=== PATIENT | male | born 1960 | race Caucasian/White ===

== ENCOUNTER 2020-01-01 08:32 | Outpatient (CLI) | payer OTHER, SELFPAY ==
--- NOTE | ~2020-01-01 | US_ITS ---
EXAMINATION: US FNA w image guidance DATE: 01/01/2020 09:28 INDICATION: Left thyroid nodule. TECHNIQUE: The procedure and its benefits, risks, and benefits were discussed with the patient. Risks specifical ly discussed included bleeding. The patient verbalized understanding of the risks and agreed to proce ed. The neck was prepped and draped in the usual sterile manner. 1% lidocaine was used for local ane sthesia. 5 passes were made with a 25G needle into the lesion. Appropriate needle location was docu mented with continuous sonographic guidance. There were no immediate complications. The patient unde rstood to call the ordering physician for results after a week and a half and verbalized that underst anding. FINDINGS: Grayscale ultrasound images demonstrate needles advanced into a 2.2 cm nodule in left thyroid lobe fo r biopsy. IMPRESSION: 1. Ultrasound-guided fine needle aspiration of a left thyroid nodule. Reviewed, dictated and finalized at location A. ER [facility] OPERATOR
== END 2020-01-01 08:33 | disposition home or self-care (01) ==
LOC: ANHIMG 08:33
PROVIDERS: PCP Family Medicine; Visit Provider Otolaryngology
DX: E04.1 Nontoxic single thyroid nodule (principal)
CPT/HCPCS: 10005; 88108; 88173

== ENCOUNTER 2020-06-28 12:41 | Outpatient (CLI) | payer OTHER, SELFPAY ==
--- NOTE | ~2020-06-28 | US_ITS ---
EXAMINATION: US FNA w image guidance DATE: 06/28/2020 14:03 INDICATION: Left-sided thyroid nodule TECHNIQUE: A time-out was performed to verify the patient's name, date of , and procedure to be performed . The procedure and its benefits and risks were discussed with the patient. Risks specifically discus sed included bleeding and infection. The patient understood the risks and agreed to proceed. The neck was prepped and draped in the usual sterile manner. 4 mL 1% lidocaine was used for local anesthesia . 6 passes were made with a 25G needle into the lesion. Appropriate needle location was documented with continuous sonographic guidance. The specimens were passed to the cytotechnologist/cytology supervisor in the room. A sterile bandage was applied. There were no immediate complications. COMPARISON: 01/01/2020 and 12/10/2019 FINDINGS: Grayscale ultrasound images again demonstrate a persistent cluster of 3 similar-appearing hypoechoic wider than tall solid thyroid nodules with smooth peripheral margins in the inferior left thyroid lob e. The deepest nodule which was previously biopsied as significantly decreased in size from at the ti me of the prior biopsy. For reference on transverse imaging the nodule currently measures 10 x 8 x 5 mm where as at the time of the prior biopsied measured 2.2 x 1.9 x 1.4 cm. The more superficial and n ow largest nodule is minimally changed in size from the prior studies measuring 1.2 x 1.0 x 0.6 cm wi th a few any internal echogenic foci real-time imaging consistent (TI-RADS 5, highly suspicious , FNA if >=1.0 cm, annual followup is >0.5 cm). The third nodule along the lateral side of the deeper nodu le measures approximately 3-4 mm. Given the significant decrease in size of the previous the biopsied nodule which no longer meets criteria for biopsy was elected to proceed with biopsy of the now large st nodule which currently does meet criteria for biopsy. IMPRESSION: 1. Marked interval decrease in size of the previously biopsied nodule which now measures 10 mm in max imal dimension. Given the marked interval decrease in size, now no longer meeting criteria for biopsy , the planned rebiopsy of this nodule was deferred. 2. Successful ultrasound-guided fine needle aspiration of a second, now dominant 1.2 cm TI RADS 5 nod ule in the inferior left thyroid. Reviewed, dictated and finalized at location A. IMPRESSION: 1. Marked interval decrease in size of the previously biopsied nodule which now measures 10 mm in maximal dimension. Given the marked interval decrease in siz e, now no longer meeting criteria for biopsy, the planned rebiopsy of this nodu le was deferred. 2. Successful ultrasound-guided fine needle aspiration of a second, now dominan t 1.2 cm TI RADS 5 nodule in the inferior left thyroid.
== END 2020-06-28 12:42 | disposition home or self-care (01) ==
PROVIDERS: PCP Family Medicine; Visit Provider Otolaryngology
DX: E04.1 Nontoxic single thyroid nodule (principal)
CPT/HCPCS: 10005; 88173; 88305